=== PATIENT | male | born 1975 | race Caucasian/White ===

== ENCOUNTER 2021-06-04 00:40 | Emergency (ER) | payer SELFPAY ==
--- NOTE | 2021-06-04 01:05 | ED.CPR ---
HPI - CPR General Chief Complaint: Cardiac Arrest/CPR Stated Complaint: code Time Seen by Provider: 06/04/21 00:40 Source: EMS Mode of arrival: EMS Limitations: clinical condition History of Present Illness HPI narrative: 45-year-old man brought to the emergency department by EMS after he collapsed at home. family members were in the next room and found him a most immediately. He was unresponsive. On arrival EMS found him pulseless and having what appeared to be VF on the monitor. They started compressions and followed ACLS protocol giving him multiple doses of epinephrine, amiodarone, and later bicarb. On arrival to the emergency department the patient was pulseless and with asystole on the monitor. CPR was continued the patient was given 300 mg of amiodarone and a 1 mg dose of epinephrine. The patient on arrival had been coded for 40 minutes. MD complaint: found unresponsive and collapsed during rest Onset (ago): minute(s) (50) Timing confirmed by: spouse and family member Place: home Bystander CPR performed: No AED applied by bystander/marine service operator: Yes Shock advised: Yes Number of shocks delivered: >3 Downtime before ACLS arrival (mins): 40 Initial findings in the field: unresponsive, no respirations, no pulse and VTACH/VFIB ROSC in the field: No Associated injuries: No Treatments prior to arrival: intubation, chest compressions, defibrillated shocks #, epinephrine mgs #, sodium bicarbonate and amiodarone Review of Systems Review of Systems: All systems reviewed & are unremarkable except as noted in HPI and below ROS unobtainable: Yes unobtainable due to medical condition Exam Const: Other: Unresponsive. plethora of the upper chest and head. Pulseless. HENMT: Other: ET tube present and anchored by device Eyes: Other: pupils fixed mid position Resp: Other: no respiratory effort Cardio: Other: pulseless Skin: Other: Cool pale extremities. Neuro: Other: Negative doll's eyes. no reaction to corneal stimulation or light. Course Course Emergency Course: Patient was given 300 mg of amiodarone and 1 mg of epinephrine both of which were followed by saline flush. CPR was continued until the patient was declared at 12:52 a.m. Discussed his condition with his and [id number]. MDM - Cardiac Arrest/CPR Differential Diagnosis Differential diagnosis: Likely acute massive pulmonary embolism, acute myocardial infarction, cardiac arrest and sudden cardiac Discharge Plan Discharge Clinical Impression: Cardiac arrest Patient Disposition: Condition: Follow-up/Referrals: UNKNOWN,DOCTOR [Primary Care Provider] - Time of Disposition: 01:14
--- NOTE | 2021-06-04 01:43 | PC.NURSE ---
See documentation notes in chart, ACLS protocols followed and ambulance operations supervisor notifed of pt .
== END 2021-06-04 02:19 | disposition expired ==
PROVIDERS: Emergency Provider Emergency Medicine
DX: I46.9 Cardiac arrest, cause unspecified (principal)
CPT/HCPCS: 92950; 99285; J0171; J0282; J7030